=== PATIENT | female | born 1950 | race Caucasian/White ===

== ENCOUNTER 2017-01-29 11:53 | Inpatient (IN) ==
[2017-01-29] MEDS ORDERED: Aspirin 81 MG TAB.CHEW PO ONE (12:03)
--- NOTE | 2017-01-29 12:18 | Emergency Department Note ---
Disposition Clinical Impression: Unstable angina, Hypokalemia, Hypocalcemia Chest pain Qualifiers: Chest pain type: chest pain due to myocardial ischemia Ischemic chest pain type : unstable angina pectoris Qualified Code(s): I20.0 - Unstable angina Disposition: Admitted As Inpatient Condition: Serious Referrals: Louisa Joseph MD [Primary Care Provider] - Forms: ED Satisfaction Letter Time of Disposition: 14:01 Chest Pain HPI - General Chief Complaint: ED Chest Pain Stated Complaint: chest pressure// MARBELLA Time Seen by Provider: 01/29/17 12:02 Source: patient, family Limitations: no limitations - History of Present Illness Pt complaint: chest pain Onset (ago): hour(s) Time: 07:30 Duration: constant Onset: during exertion Pain Location: substernal Severity scale (1-10): 3 Quality: heaviness Pain Radiation: RUE, LUE Improves with: nothing Worsens with: nothing Associated symptoms: Reports: nausea, vomiting, diaphoresis Treatments prior to arrival chest pain: none - Related Data Home Medications Medication Instructions Recorded Confirmed Cholecalciferol (D-3) [Vitamin D] 2,000 unit PO BID #0 10/09/15 01/29/17 Fish Oil/Dha/Epa [Fish Oil 1,200 1 cap PO DAILY #0 10/09/15 01/29/17 mg Fish Oil] Magnesium 200 mg PO DAILY #0 10/09/15 01/29/17 Carvedilol [Coreg] 6.25 mg PO BID 01/29/17 01/29/17 Clopidogrel [Plavix] 75 mg PO DAILY 01/29/17 01/29/17 Levothyroxine [Synthroid] 150 mcg PO DAILY 01/29/17 01/29/17 Agj800/Iron Fumarate/FA/Dss 1 tab PO DAILY 01/29/17 01/29/17 [ 19 Tablet] Previous Rx's Medication Instructions Recorded Aspirin 81 mg PO DAILY #30 tab.chew 09/02/15 Atorvastatin [Lipitor] 80 mg PO HS #30 tablet 09/02/15 Lisinopril [Zestril] 2.5 mg PO DAILY #30 tablet 09/02/15 Nitroglycerin 0.4 mg SL Q5MIN PRN #30 tab.subl 09/02/15 Allergies Allergy/AdvReac Type Severity Reaction Status Date / Time Sulfa (Sulfonamide Allergy See Verified 01/29/17 12:00 Antibiotics) Comments All systems ED: reviewed and negative except as stated. Review of Systems: As Per HPI Constitutional: Denies: fever ENT ED: Reports: congestion. Denies: throat pain Cardiovascular: Reports: chest pain. Denies: palpitations Respiratory: Reports: dyspnea. Denies: cough, wheezes, hemoptysis Gastrointestinal: Reports: nausea, vomiting. Denies: abdominal pain, diarrhea Genitourinary: Denies: urgency, dysuria, frequency, hematuria Musculoskeletal: Denies: back pain, neck pain Integumentary: Denies: rash Neurological: Denies: headache, weakness Psychiatric: Denies: anxiety Endocrine: Reports: fatigue Chest Pain PMH - Past Medical History Medical history: Reports: arthritis, coronary artery disease, hyperlipidemia, hypertension, kidney stones, myocardial infarction, thyroid disease Surgical history: Reports: angioplasty/stent, other Psychiatric history: Reports: no psych history - Social History Smoking Status: Former smoker Alcohol use: Reports: none Drug use: Reports: none Physical Exam - General Limitations: no limitations General appearance: alert, in no apparent distress Course - Reevaluation(s) Reevaluation #1: Labs ordered, aspirin 324 and nitroglycerin sublingual ordered Time: 12:21 - Consultations Consultation #1: Discussed case with Dr. Sadi Hinojosa cardiology he states start heparin. He will see the patient when admitted to medicine Time: 13:54 Consultation #2: Dr. Tillman the hospitalist has a cut the patient for admission 1358 hrs. Time: 13:56 Vital Signs Temperature 97.5 F L 01/29/17 11:56 Pulse Rate 84 01/29/17 11:56 Respiratory Rate 20 01/29/17 11:56 Blood Pressure 143/101 01/29/17 11:56 O2 Sat by Pulse Oximetry 96 01/29/17 11:56 Temperature 97.5 F L 01/29/17 11:56 Pulse Rate 72 01/29/17 12:53 Respiratory Rate 14 01/29/17 12:53 Blood Pressure 127/86 01/29/17 12:53 O2 Sat by Pulse Oximetry 98 01/29/17 12:53 Oxygen Delivery Oxygen Delivery Room Air Chest Pain - MDM Narrative Medical decision making narrative: Patient history of HI, recent echo shows a LVEF of 30%. Patient's COPD, CHF and has one stent. Patient has had progressively worsening chest pain over the past week. Patient states episodes lasted up to 30 minutes. It was relieved by rest. Patient woke up this morning 0730 hrs. and her chest pain started after waking up but did not relieve with rest. Patient's chest pain persisted. Patient did not take any nitroglycerin as she forgot. Patient currently has chest pressure radiating to both shoulders 07/22. Current plan to be ACS workup. Patient has some bilateral lung crackles at lung bases. We will check for pneumonia. Ordered a lactic acid to check for anaerobic metabolism. Make sure patient is not septic. Patient has no markers for sepsis. Patient being admitted for unstable angina. Patient negative for UTIs well. Patient is hypokalemic and has low calcium and his been started on supplementation Patient accepts current plan for admission.. - Lab Data Lab results reviewed: Yes I reviewed the patient's lab results. Lab results narrative: Short CBC 01/29/17 Range/Units 12:28 WBC 8.4 (4.3-11.1) K/mcL Hgb 11.8 (11.5-15.4) g/dL Hct 37.9 (35.3-44.9) % Plt Count 273 (140-400) K/mcL Neutrophils # 6.5 (1.6-8.9) K/mcL BMP 01/29/17 Range/Units 12:28 Sodium 140 (136-145) mEq/L Potassium 3.3 L (3.5-4.5) mEq/L Chloride 105 (98-109) mEq/L Carbon Dioxide 25 (19-29) mEq/L BUN 16 (7-20) mg/dL Creatinine 1.05 (0.57-1.11) mg/dL Glucose 108 H (70-99) mg/dL Calcium 5.7 L* (8.6-10.8) mg/dL Cardiac Enzymes 01/29/17 Range/Units 12:28 Troponin I 0.04 H* (0-0.03) ng/mL Urine 01/29/17 Range/Units 13:10 Urine Color Yellow (Yellow) Urine Clarity Clear (Clear) Urine pH 6.5 (5.0-8.0) pH Units Ur Specific Sterling 1.011 (1.010-1.025) Urine Protein 100 H (Neg-Trace) mg/dL Urine Glucose (UA) Normal (Normal) mg/dL Result diagrams: 01/29/17 12:28 01/29/17 12:28 Lab Results 01/29/17 01/29/17 01/29/17 Range/Units 12:26 12:28 12:28 WBC 8.4 (4.3-11.1) K/mcL RBC 4.14 (3.82-4.97) M/mcL Hgb 11.8 (11.5-15.4) g/dL Hct 37.9 (35.3-44.9) % MCV 91.5 (83.0-100.0) fL MCH 28.5 (28.0-33.3) pg MCHC 31.1 L (31.6-35.5) g/dL RDW 12.1 (11.5-14.5) % Plt Count 273 (140-400) K/mcL MPV 10.5 (9.4-12.4) fL Immature Gran % 0.2 (0-4) % Seg Neutrophils % 76.7 % Lymphocytes % 14.0 % Monocytes % 6.0 % Eosinophils % 2.6 % Basophils % 0.5 % Neutrophils # 6.5 (1.6-8.9) K/mcL Lymphocytes # 1.2 (0.6-4.6) K/mcL Monocytes # 0.5 (0.0-1.3) K/mcL Eosinophils # 0.2 (0.0-0.6) K/mcL Basophils # 0.0 (0.0-0.2) K/mcL Immature Plt Fraction 3.7 (1.1-6.1) % PT 17.9 H (9.4-12.1) Seconds INR 1.6 APTT 34.9 (26.0-36.0) Seconds Sodium (136-145) mEq/L Potassium (3.5-4.5) mEq/L Chloride (98-109) mEq/L Carbon Dioxide (19-29) mEq/L BUN (7-20) mg/dL Creatinine (0.57-1.11) mg/dL Est GFR ( Amer) (> 60) Est GFR (Non-Af Amer) (> 60) BUN/Creatinine Ratio (6-26) Glucose (70-99) mg/dL Calculated Osmolality (280-300) Lactic Acid 1.2 (0.5-2.2) mmol/L Calcium (8.6-10.8) mg/dL Troponin I (0-0.03) ng/mL Urine Color (Yellow) Urine Clarity (Clear) Urine pH (5.0-8.0) pH Units Ur Specific Sterling (1.010-1.025) Urine Protein (Neg-Trace) mg/dL Urine Glucose (UA) (Normal) mg/dL Urine Ketones (Negative) mg/dL Urine Blood (Negative) Urine Nitrite (Negative) Urine Bilirubin (Negative) Urine Urobilinogen (Normal) mg/dL Ur Leukocyte Esterase (Negative) Urine Microscopic RBC (0-3) per hpf Urine Microscopic WBC (0-3) per hpf Ur Squamous Epith Cells (None-Few) per lpf Urine Bacteria (None-Few) per hpf Hyaline Casts (None-Few) per lpf Ur Culture Indicated? (NO) 01/29/17 01/29/17 01/29/17 Range/Units 12:28 12:28 13:10 WBC (4.3-11.1) K/mcL RBC (3.82-4.97) M/mcL Hgb (11.5-15.4) g/dL Hct (35.3-44.9) % MCV (83.0-100.0) fL MCH (28.0-33.3) pg MCHC (31.6-35.5) g/dL RDW (11.5-14.5) % Plt Count (140-400) K/mcL MPV (9.4-12.4) fL Immature Gran % (0-4) % Seg Neutrophils % % Lymphocytes % % Monocytes % % Eosinophils % % Basophils % % Neutrophils # (1.6-8.9) K/mcL Lymphocytes # (0.6-4.6) K/mcL Monocytes # (0.0-1.3) K/mcL Eosinophils # (0.0-0.6) K/mcL Basophils # (0.0-0.2) K/mcL Immature Plt Fraction (1.1-6.1) % PT (9.4-12.1) Seconds INR APTT (26.0-36.0) Seconds Sodium 140 (136-145) mEq/L Potassium 3.3 L (3.5-4.5) mEq/L Chloride 105 (98-109) mEq/L Carbon Dioxide 25 (19-29) mEq/L BUN 16 (7-20) mg/dL Creatinine 1.05 (0.57-1.11) mg/dL Est GFR ( Amer) > 60 (> 60) Est GFR (Non-Af Amer) 53 L (> 60) BUN/Creatinine Ratio 15 (6-26) Glucose 108 H (70-99) mg/dL Calculated Osmolality 292 (280-300) Lactic Acid (0.5-2.2) mmol/L Calcium 5.7 L* (8.6-10.8) mg/dL Troponin I 0.04 H* (0-0.03) ng/mL Urine Color Yellow (Yellow) Urine Clarity Clear (Clear) Urine pH 6.5 (5.0-8.0) pH Units Ur Specific [place] 1.011 (1.010-1.025) Urine Protein 100 H (Neg-Trace) mg/dL Urine Glucose (UA) Normal (Normal) mg/dL Urine Ketones Negative (Negative) mg/dL Urine Blood Negative (Negative) Urine Nitrite Negative (Negative) Urine Bilirubin Negative (Negative) Urine Urobilinogen Normal (Normal) mg/dL Ur Leukocyte Esterase Negative (Negative) Urine Microscopic RBC 3-5 H (0-3) per hpf Urine Microscopic WBC 0-3 (0-3) per hpf Ur Squamous Epith Cells Many H (None-Few) per lpf Urine Bacteria None Seen (None-Few) per hpf Hyaline Casts None Seen (None-Few) per lpf Ur Culture Indicated? NO (NO) - Radiology Data Radiology results reviewed: Yes I reviewed the patient's radiology results. Chest X-Ray 01/29/17 12:04 IMPRESSION: Interval increase in interstitial prominence since the previous exam which may be related to edema. No substantial change otherwise in pleural effusions. D/ / Shyann Gama MD / Shyann Gama MD Interpreting Provider: Shyann Gama MD - EKG Data EKG attestation: Yes I reviewed and interpreted this EKG. EKG results narrative: EKG taken 01/29/2017 at 1209 hrs. shows sinus rhythm with first-degree AV block but no ischemic changes. He was EKG taken at 11/06/2015 shows A. fib at a rate of 84 bpm with no acute ST elevations or depressions are. Today's EKG looks better. Heart Score - Score History: Highly Suspicious EKG: Non Specific repolarisation Disturbance Age: 45-65 Risk Factors: Equal/Greater than 3 risk factor or history of atherosclerotic disease Troponin: 1-3x normal limit HEART Score Total: 7 Attestation Statement - Attestation Attestation: Patient was seen with resident physician. I reviewed the history, physical, assessment and plan, and agree with the findings. I also personally evaluated this patient and had [id number] time with this patient. 66-year-old female the history of coronary artery disease presents to the emergency department with a one-week history of worsening chest pressure. Patient states the episodes started last week. Initially were 5-10 minutes in duration associated with exertion. Progressively the episodes of gotten longer lasting upwards of 30 minutes. Brought her in today was that she had an episode of 30 minutes it was not related to exertion. That was highly concerning to her. She also had an episode of nausea and vomiting today. She says the episode usually make her diaphoretic but not particularly short of breath. It feels similar to when she had a heart attack a little over a year ago. She denies fevers or chills. No abdominal pain. No diarrhea. Patient has nitroglycerin at home but she said she forgot to take it. She did take a baby aspirin this morning. On exam vital signs are stable. ENT is unremarkable. Heart regular rhythm and rate. Lungs clear. Abdomen soft and nontender. Extremities unremarkable. Neurologically the patient is intact. ED course initial EKG does not show acute ischemic changes. It is similar to prior EKG. We will do workup for chest pain, we will treat with nitroglycerin. We will admit to hospital for further evaluation and treatment. Agree with resident physician assessment and plan.
[2017-01-29] MEDS ORDERED: Ipratropium/Albuterol Neb 3 ML IH ONE (12:21)
[2017-01-29 12:37] LABS: Basophils % 0.5 %; Eosinophils # 0.2 K/mcL (0.0-0.6); Eosinophils % 2.6 %; Hematocrit 37.9 % (35.3-44.9); Hemoglobin 11.8 g/dL (11.5-15.4); Immature Granulocytes % 0.2 % (0-4); Immature Platelets 3.7 % (1.1-6.1); Lymphocytes # 1.2 K/mcL (0.6-4.6); Mean Corpuscular HGB Conc 31.1 g/dL (31.6-35.5); Mean Corpuscular Hemoglobin 28.5 pg (28.0-33.3); Mean Corpuscular Volume 91.5 fL (83.0-100.0); Mean Platelet Volume 10.5 fL (9.4-12.4); Monocytes # 0.5 K/mcL (0.0-1.3); Neutrophils # 6.5 K/mcL (1.6-8.9); Platelet Count 273 K/mcL (140-400); Red Blood Count 4.14 M/mcL (3.82-4.97); Red Cell Distribution Width 12.1 % (11.5-14.5); Segmented Neutrophils % 76.7 %
[2017-01-29] MEDS: Nitroglycerin 0.4 MG TAB.SUBL SL PRN ×2 (12:37→12:43)
[2017-01-29 12:43] LABS: INR 1.6; Prothrombin Time 17.9 Seconds (9.4-12.1)
[2017-01-29 12:46] LABS: Activated Partial Thrombo Time 34.9 Seconds (26.0-36.0)
[2017-01-29 12:55] LABS: BUN/Creatinine Ratio 15 (6-26); Blood Urea Nitrogen 16 mg/dL (7-20); Carbon Dioxide 25 mEq/L (19-29); Chloride 105 mEq/L (98-109); Glucose 108 mg/dL (70-99); Osmolality,Calculated 292 (280-300); Potassium 3.3 mEq/L (3.5-4.5); Sodium 140 mEq/L (136-145); eGFR For African Americans > 60 (> 60); eGFR For Non-African Americans 53 (> 60)
[2017-01-29 12:57] LABS: Calcium 5.7 mg/dL (8.6-10.8)
[2017-01-29 13:24] LABS: Bilirubin,Urine Negative (Negative); Blood,Urine Negative (Negative); Clarity,Urine Clear (Clear); Color,Urine Yellow (Yellow); Glucose,Urine (UA) Normal (Normal); Ketones,Urine Negative (Negative); Leukocyte Esterase,Urine Negative (Negative); Nitrite,Urine Negative (Negative); PH,Urine 6.5 pH Units (5.0-8.0); Protein,Urine 100 mg/dL (Neg-Trace); Specific Gravity,Urine 1.011 (1.010-1.025); Urobilinogen,Urine Normal (Normal)
[2017-01-29 13:27] LABS: Bacteria,Urine None Seen per hpf (None-Few); Hyaline Casts,Urine None Seen per lpf (None-Few); Squamous Epithelial Cell,Urine Many per lpf (None-Few); WBC,Urine 0-3 per hpf (0-3)
[2017-01-29] MEDS ORDERED: *HR* Heparin 5,000 UNIT/ML VIAL IVP ONE (13:54)
[2017-01-29] MEDS ORDERED: Calcium Gluconate 1,000 MG in D5% in Water 100 ML IVPB ONE (13:59)
[2017-01-29] MEDS: Heparin 25,000 UNIT/500 ML D5W 25,000 UNIT/500 ML MLS IVC SCH (14:53)
[2017-01-29] MEDS ORDERED: Ondansetron 4 MG/2 ML VIAL IVP PRN (15:44)
[2017-01-29] MEDS ORDERED: *HR* HYDROcodone/Acet 5/325 mg TABLET PO PRN (15:44)
[2017-01-29] MEDS ORDERED: *HR* Morphine 2 MG/ML SYRINGE IVP PRN (15:44)
[2017-01-29] MEDS ORDERED: Naloxone 0.4 MG/ML INJ IVP PRN (15:44)
[2017-01-29] MEDS ORDERED: Acetaminophen 325 MG TABLET PO PRN (15:44)
[2017-01-29] MEDS ORDERED: Pantoprazole 40 MG VIAL IVP SCH (15:45)
[2017-01-29] MEDS ORDERED: Nitroglycerin 0.4 MG TAB.SUBL SL PRN (15:52)
[2017-01-29] MEDS ORDERED: D5% in Water 1,000 ML IVC PRN (15:57)
[2017-01-29] MEDS ORDERED: *HR* Dextrose 50 % in Water (Syg) 50 ML SYRINGE IVP PRN (15:57)
[2017-01-29] MEDS ORDERED: Dextrose Gel 15 GM PO PRN ×2 (15:57)
--- NOTE | 2017-01-29 16:03 | Internal Med History&Physical ---
<aRn Dennis - Last Filed: 01/29/17 16:56> Date of Encounter: 01/29/17 Time of Encounter: 15:00 Assessment and Plan (1) Chest pain Current visit: Yes Status: Acute Patient presents with acute chest pain that she states has been occurring for the past week and has become progressively worse over the past 24 hours. Pateient describes chest pain as central pressure in her chest that radiated to her left neck and arms bilaterally. Patient states chest pain has become worse over the past week and was relieved with rest. Patient reports chest pain is similar to when she had her heart attack in August 2015. Patient had previous echocardiogram on 11/07/16 which showed LVEF of 35%. No previous stress test done. Initial troponin 0.04. Patient placed on continuous cardiac telemetry and will trend troponin x2. Cardiology consult ordered. Patient to be NPO at midnight for possible stress test based on cardiology recommendations. Nitroglycerin SL PRN. Supplemental O2 and SpO2 monitoring for SOB associated with CP. Patient placed on heparin drip. Will continue patient's aspirin therapy , Plavix, Coreg, lisinopril, Lipitor. Patient to be monitored closely. Qualifiers: Chest pain type: chest pain due to myocardial ischemia Ischemic chest pain type: unstable angina pectoris Qualified Code(s): I20.0 - Unstable angina (2) Unstable angina Current visit: Yes Status: Acute Patient presents with unstable angina today with chest pain that she describes as central pressure in her chest that radiated to her left neck and arms bilaterally. Patient states chest pain has become worse over the past week and was relieved with rest. Patient reports chest pain is similar to when she had her heart attack in August 2015. Patient had previous echocardiogram on which showed LVEF of 35%. No previous stress test done. Nitroglycerin SL PRN ordered. Continue aspirin therapy. Patient placed on heparin drip. Cardiology consult ordered. (3) Hypocalcemia Current visit: Yes Status: Acute Patient hypocalcemic on admission with calcium level of 5.7. 1,000 mg calcium gluconate IVPB administered and ED. Will monitor patient's calcium status in follow-up labs. (4) Hypokalemia Current visit: Yes Status: Acute Patient presents with acute hypokalemia with potassium level of 3.3 on admission. Patient given 40 mEq by mouth potassium in ED. 40 mEq PO potassium ordered for tomorrow if still hypokalemic. Monitor follow-up labs for potassium level. (5) Hyperglycemia Current visit: Yes Status: Acute Patient presents with acute hyperglycemia and blood glucose level of 108 on admission. Patient denies any previous diabetes mellitus. Blood glucose monitoring every 6. Will administer low-dose correction insulin sliding scale with hypoglycemic protocol if needed. A1c ordered in a.m. labs. (6) CAD (coronary artery disease) Current visit: Yes Status: Chronic Patient presents with history of chronic coronary artery disease with reported last heart attack in August 2015 which resulted in stent placement 1. Patient' s previous echo cardiogram on 11/07/16 shows LVEF of 35%. Patient's risk factors include hyperlipidemia, hypertension, former tobacco abuse, and previous UT. Initial troponin 0.04. Trend troponin 2. Patient placed on continuous cardiac telemetry. Will continue patient's aspirin therapy, Plavix, Coreg, lisinopril, and Lipitor. Cardiology consult ordered. Qualifiers: Coronary Disease-Associated Artery/Lesion type: unspecified vessel or lesion type [place] vs. transplanted heart: [place] heart Associated angina: with unstable angina Qualified Code(s): I25.110 - Atherosclerotic heart disease of [place] coronary artery with unstable angina pectoris (7) HLD (hyperlipidemia) Current visit: Yes Status: Chronic Patient presents with history of chronic hyperlipidemia. Lipid panel ordered in a.m. labs and will continue patient's Lipitor. Qualifiers: Hyperlipidemia type: pure hypercholesterolemia Qualified Code(s): E78.00 - Pure hypercholesterolemia, unspecified; E78.0 - Pure hypercholesterolemia (8) HTN (hypertension) Current visit: Yes Status: Chronic Patient presents with history of chronic hypertension. Will monitor patient and vital signs and continue patient's Coreg and lisinopril. Qualifiers: Hypertension type: essential hypertension Qualified Code(s): I10 - Essential (primary) hypertension (9) Thyroid disease Current visit: Yes Status: Chronic Patient presents with history of chronic thyroid disease. Will continue patient 's Synthroid. (10) DVT prophylaxis Current visit: Yes Status: Acute Patient to be placed on DVT prophylaxis due to her current admission protocol and current symptoms. Patient placed on heparin drip due to current unstable angina. Internal Medicine - H&P: HPI Chief complaint: Chest pain Admitted From: Emergency Dept Plans for Post Hospital Care: Home History of present illness: Ms. White is a 66 year old female with history of coronary artery disease with stent placement 1, hyperlipidemia, hypertension, previous kidney stones, UT in August 2015, and thyroid disease presents from the ED with chief complaint of chest pain that she describes as central pressure in her chest that radiated to her left neck and arms bilaterally. Patient states chest pain has become worse over the past week and was relieved with rest. Patient reports chest pain is similar to when she had her heart attack in August 2015. Patient had previous echocardiogram on 11/07/16 which showed LVEF of 35%. No previous stress test done. Patient reports some SOB and dizziness with the chest pain but denies recent illness, fever, chills, nausea, vomiting, abdominal pain, vision changes , unusual bleeding, headache, lightheadedness, pre-syncope, or syncope. 1-View CXR today shows interval increase in interstitial prominence since the previously seen which may related to edema. No substantial change otherwise and pleural effusions. On admission the ED. Patient's vital signs included temperature of 97.5F, heart rate of 72 bpm, respiratory rate of 14, BP of 127/86 , and SpO2 of 98% on RA. Initial UA not indicative for culture. Abnormal labs include PT of 7.9, potassium of 3.3, GFR of 53, calcium of 5.7, and initial troponin of 0.04. On examination, patient reports no chest pain currently and states that two nitroglycerin helped stop her chest pin. HR is RRR and lungs have mild bilateral crackles in lung bases. No pedal edema present on exam. Patient is hemodynamically stable and reports no acute distress. Information taken from patient, family, chart review, and previous medical records. Ms. White is at high risk for further cardiac event based on current symptoms, history, and risk factors and will be placed as observation status. Time spent with patient and family >40 minutes. Past Med Surg Social Fam HX - Past Medical History Source: patient, old records reviewed Medical history: arthritis, coronary artery disease, hyperlipidemia, hypertension, kidney stones, myocardial infarction, thyroid disease Psychiatric history: no psych history - Past Surgical History Surgical History: angioplasty/stent, other (Gastric bypass in 1974) - Social History Smoking Status: Former smoker Packs per day: 2 PPD - Reports quitting in 2016 following last UT Smokeless Tobacco Status: No Alcohol use: none Drug use: none Current living situation: Home, With Family Activity Level: Independent ambulation Recent Out of Country Travel Within the Last 8 Weeks: No Exposure or Possible Exposure to Illness During Travel: No - Family History Mother Race: Family Member Ethnicity: Non- Living Status: Age at : 72 Cause of : Lung cancer Hx Family Cancer: Yes (Lung) Father Race: Family Member Ethnicity: Non- Living Status: Age at : 66 Cause of : UT Hx Family Cardiac Disorders: Yes (UT, HTN) Brother Race: Family Member Ethnicity: Non- Living Status: Age at : 42 Cause of : Kidney cancer Hx Family Cancer: Yes (Kidney) Sister Race: Family Member Ethnicity: Non- Living Status: Age at : 60 Cause of : Ovarian cancer Hx Family Cancer: Yes (Ovarian) Internal Medicine - H&P: Meds Aspirin 81 mg PO DAILY #30 tab.chew 09/02/15 [Rx] Atorvastatin [Lipitor] 80 mg PO HS #30 tablet 09/02/15 [Rx] Lisinopril [Zestril] 2.5 mg PO DAILY #30 tablet 09/02/15 [Rx] Nitroglycerin 0.4 mg SL Q5MIN PRN #30 tab.subl 09/02/15 [Rx] Cholecalciferol (D-3) [Vitamin D] 2,000 unit PO BID #0 10/09/15 [History] Fish Oil/Dha/Epa [Fish Oil 1,200 mg Fish Oil] 1 cap PO DAILY #0 10/09/15 [ History] Magnesium 200 mg PO DAILY #0 10/09/15 [History] Carvedilol [Coreg] 6.25 mg PO BID 01/29/17 [History] Clopidogrel [Plavix] 75 mg PO DAILY 01/29/17 [History] Levothyroxine [Synthroid] 150 mcg PO DAILY 01/29/17 [History] Pdv392/Iron Fumarate/FA/Dss [ 19 Tablet] 1 tab PO DAILY 01/29/17 [ History] 3 Allergy/AdvReac Type Severity Reaction Status Date / Time Sulfa (Sulfonamide Allergy See Verified 01/29/17 12:00 Antibiotics) Comments All Systems PM: A 10-system review of systems was performed and is negative for pertinent findings except as documented above in the HPI. - Constitutional Constitutional: no chills, no fever(s), no night sweats - EENT Eyes: no change in vision, no discharge, no pain, no photophobia Ears: no ear discharge, no ear pain, no tinnitus Nose, mouth and throat: no dysphagia, no nasal discharge, no neck pain, no sore throat - Breasts Breasts: as per HPI - Cardiovascular Cardiovascular ROS IM: as per HPI, chest pain, dyspnea, dyspnea on exertion - Respiratory Respiratory: as per HPI, dyspnea, dyspnea on exertion - Gastrointestinal Gastrointestinal: no abdominal pain, no diarrhea, no hematemesis, no hematochezia, no melena, no nausea, no vomiting - Genitourinary Genitourinary: no change in urinary stream, no dysuria, no flank pain, no hematuria Menstruation: as per HPI - Musculoskeletal Musculoskeletal ROS IM: no numbness, no tingling - Integumentary Integumentary IM: no rash, no unusual bruising - Neurological Neurological ROS: no confusion, no convulsions, no focal weakness, no numbness, no tingling, no tremor(s) - Psychiatric Psychiatric: as per HPI - Endocrine Endocrine IM: as per HPI - Hematologic/Lymphatic Hematologic/Lymphatic: no easy bruising - Allergic/Immunologic Allergic/Immunologic: as per HPI - Constitutional Vitals: Temp Pulse Resp BP Pulse Ox 97.5 F L 67 15 138/84 96 01/29/17 11:56 01/29/17 15:11 01/29/17 15:50 01/29/17 15:50 01/29/17 15:11 General appearance: Present: cooperative, A&O X 3, pleasant, no acute distress, obese, answers questions appropriately - Head Head exam: Present: atraumatic, normocephalic - Eye Eye exam: Present: PERRL, conjuntiva pink, sclera anicteric Pupils: Present: PERRL - ENT ENT exam: Present: normal exam, normal external ear exam - Neck Neck exam general surgery: Present: normal inspection, supple, trachea midline. Absent: lymphadenopathy - Respiratory Respiratory exam: Absent: accessory muscle use, rales, rhonchi, wheezes - Cardiovascular Cardiovascular exam: Present: RRR, +S1, +S2. Absent: diastolic murmur, gallop, rubs, systolic murmur - GI/Abdominal GI/Abdominal exam: Present: normal bowel sounds, soft, no peritoneal signs. Absent: distended, tenderness - Rectal Rectal exam: Present: deferred - Additional comments: exam deferred. - Extremities Exam Extremities exam: Present: warm, radial pulses palpable and symmetrical. Absent : calf tenderness, cyanotic, pedal edema - Back Exam Back exam: Present: normal inspection - Neurological Exam Neurological exam: Present: CN II-XII intact, oriented X3, no focal deficits. Absent: pronater drift, facial droop, speech deficit - Psychiatric Psychiatric exam: Present: normal affect, normal mood - Skin Skin exam: Present: dry, intact Internal Med - H&P Results - Labs CBC & Chem 7: 01/29/17 12:28 01/29/17 12:28 - EKG Data EKG shows normal: sinus rhythm - EKG Data Prior EKG available for review: yes EKG comments: 01/29/17 16:23 EKG dated 11/06/15 shows atrial fibrillation with low QRS voltage in precordial leads, possible anterior myocardial infarction of indeterminate age. EKG dated 01/29/17 shows sinus rhythm with first-degree AV block, possible anterior myocardial infarction of indeterminate age. - Diagnostic Studies Chest x-ray Additional comments: Impressions Chest X-Ray 01/29/17 12:04 IMPRESSION: Interval increase in interstitial prominence since the previous exam which may be related to edema. No substantial change otherwise in pleural effusions. D/ / Shyann Gama MD / Shyann Gama MD Interpreting Provider: Shyann Gama MD <Mil Tillman - Last Filed: 01/29/17 18:35> Date of Encounter: 01/29/17 Internal Medicine - H&P: HPI History of present illness: Ms. White is a 66 year old female All Systems PM: A 10-system review of systems was performed and is negative for pertinent findings except as documented above in the HPI. - Constitutional Vitals: Temp Pulse Resp BP Pulse Ox 98.3 F 71 21 149/87 95 01/29/17 17:06 01/29/17 17:06 01/29/17 17:06 01/29/17 17:06 01/29/17 17:06 Internal Med - H&P Results - Labs CBC & Chem 7: 01/29/17 12:28 01/29/17 12:28 Labs: Cardiac Enzymes 01/29/17 Range/Units 17:52 Troponin I 0.03 (0-0.03) ng/mL - Attending Attestation I personally interviewed and examined this patient. I agree with the findings, assessment and plan of BELEM Dennis. Pt's presentation very concerning for unstable angina.I agree with the management as outlined including heparin drip and BB. Cardiology consult placed. Will await cardiology reccs on whether to proceed with stress test or LHC. Pt is currently pain free.
[2017-01-29] MEDS: Insulin LISPRO 300 UNITS/3 ML VIAL SQ SCH (17:36)
[2017-01-29] MEDS: Cholecalciferol (D-3) 1,000 UNIT TABLET PO SCH (20:49)
[2017-01-29] MEDS ORDERED: Insulin LISPRO 300 UNITS/3 ML VIAL SQ SCH (21:00)
[2017-01-29 21:27] LABS: Activated Partial Thrombo Time 144.5 Seconds (26.0-36.0)
[2017-01-29 21:35] LABS: Heparin anti-factor XA UFH 0.56 IU/mL (0.30-0.70)
[2017-01-30 00:47] LABS: Basophils % 0.6 %; Eosinophils # 0.2 K/mcL (0.0-0.6); Eosinophils % 3.5 %; Hematocrit 35.6 % (35.3-44.9); Immature Granulocytes % 0.2 % (0-4); Immature Platelets 3.5 % (1.1-6.1); Lymphocytes # 1.4 K/mcL (0.6-4.6); Lymphocytes % 21.6 %; Mean Corpuscular HGB Conc 30.9 g/dL (31.6-35.5); Mean Corpuscular Hemoglobin 28.5 pg (28.0-33.3); Mean Corpuscular Volume 92.2 fL (83.0-100.0); Mean Platelet Volume 10.5 fL (9.4-12.4); Monocytes # 0.4 K/mcL (0.0-1.3); Monocytes % 6.6 %; Neutrophils # 4.2 K/mcL (1.6-8.9); Platelet Count 210 K/mcL (140-400); Red Blood Count 3.86 M/mcL (3.82-4.97); Red Cell Distribution Width 12.1 % (11.5-14.5); Segmented Neutrophils % 67.5 %
[2017-01-30 00:52] LABS: INR 1.9; Prothrombin Time 20.5 Seconds (9.4-12.1)
[2017-01-30 00:55] LABS: Activated Partial Thrombo Time 63.7 Seconds (26.0-36.0)
[2017-01-30 00:58] LABS: Hemoglobin A1C 4.7 %
[2017-01-30 01:01] LABS: Alanine Aminotransferase 18 Units/L (0-55); Albumin/Globulin Ratio 0.9 (1.1-2.2); Alkaline Phosphatase 93 Units/L (38-126); Aspartate Amino Transferase 26 Units/L (5-34); BUN/Creatinine Ratio 13 (6-26); Bilirubin,Total 1.3 mg/dL (0.2-1.2); Blood Urea Nitrogen 16 mg/dL (7-20); Carbon Dioxide 21 mEq/L (19-29); Chloride 109 mEq/L (98-109); Chol/HDL Ratio 2.5 (0-4.9); Globulin 3.4 g/dL (2.4-3.5); Glucose 85 mg/dL (70-99); HDL Cholesterol 21 mg/dL (40-59); LDL Cholesterol,Calculated 20 mg/dL (0-99); Osmolality,Calculated 294 (280-300); Potassium 3.2 mEq/L (3.5-4.5); Sodium 142 mEq/L (136-145); Total Protein 6.4 g/dL (6.0-8.3); Triglycerides 58 mg/dL (< 150); eGFR For African Americans 55 (> 60); eGFR For Non-African Americans 46 (> 60)
[2017-01-30 01:02] LABS: Cholesterol 53 mg/dL (< 200); Magnesium < 0.7 mg/dL (1.6-2.6)
[2017-01-30 01:05] LABS: Calcium 5.4 mg/dL (8.6-10.8)
[2017-01-30] MEDS ORDERED: Magnesium Sulfate 2 GM in D5% in Water 100 ML IVPB ONE ×2 (01:19→16:00)
[2017-01-30] MEDS ORDERED: Calcium Gluconate 1,000 MG in D5% in Water 100 ML IVPB ONE (01:19)
[2017-01-30] MEDS ORDERED: Magnesium Sulfate 1 GM in D5% in Water 100 ML IVPB ONE (01:20)
[2017-01-30 05:08] LABS: BUN/Creatinine Ratio 15 (6-26); Blood Urea Nitrogen 16 mg/dL (7-20); Carbon Dioxide 20 mEq/L (19-29); Chloride 111 mEq/L (98-109); Glucose 104 mg/dL (70-99); Magnesium 1.2 mg/dL (1.6-2.6); Osmolality,Calculated 295 (280-300); Potassium 3.1 mEq/L (3.5-4.5); Sodium 142 mEq/L (136-145); eGFR For African Americans > 60 (> 60); eGFR For Non-African Americans 51 (> 60)
[2017-01-30 05:10] LABS: Calcium 5.7 mg/dL (8.6-10.8)
[2017-01-30] MEDS: Magnesium Sulfate 1 GM in D5% in Water 100 ML IVPB ONE ×2 (07:46→08:57)
[2017-01-30] MEDS: Insulin LISPRO 300 UNITS/3 ML VIAL SQ SCH (07:47)
[2017-01-30] MEDS ORDERED: Potassium Chloride 40 MEQ, Lidocaine 1% 2 ML in D5% in Water 500 ML IVPB ONE (08:12)
[2017-01-30] MEDS: Multivit/Ca/Min/Fe/FA 1 TAB TABLET PO SCH (08:58)
[2017-01-30] MEDS: Cholecalciferol (D-3) 1,000 UNIT TABLET PO SCH ×2 (08:58→20:47)
[2017-01-30] MEDS: Aspirin 81 MG TAB.CHEW PO SCH (08:59)
[2017-01-30] MEDS: Magnesium Oxide 400 MG TABLET PO SCH ×2 (08:59→20:47)
[2017-01-30] MEDS ORDERED: Magnesium Oxide 400 MG TABLET PO SCH (09:00)
--- NOTE | 2017-01-30 09:13 | Cardiology Consult Note ---
<Yana Munguia Concepcion - Last Filed: 01/30/17 09:43> Date of Encounter: 01/30/17 Time of Encounter: 08:40 Assessment and Plan (1) Unstable angina Current Visit: Yes Status: Acute Symptoms concerning for unstable angina. No acute ischemic ECG changes noted. Mild, adynamic troponin elevation--0.04, 0.03, 0.04. Known ischemic cardiomyopathy with LVEF 35%. [facility] Apirl 2016 s/p PCI to pLAD otherwise non-obstructive CAD. Recommend [facility] with possible PCI; alternatives, risks, and benefits discussed she is agreeable to proceed. INR 1.9 this AM, (? lab error), will recheck at 11 AM. Ideally, improve electrolyte imbalance prior to [facility] today. Continue heparin gtt, asa, statin, plavix, and betablocker. Further recommendations to follow. (2) Chronic systolic (congestive) heart failure Current Visit: Yes Status: Acute Hx of systolic CHF dating back to August 2015, LVEF 35%. Appears euvolemic upon exam. Reports NYHA class II symptoms. Has been recommended for AICD implant as outpatient; however patient is not interested in implant at this time (see outpt record). She is aware of increased risk of ventricular dysrhythmia. Most recent EF assessment October 2016, LVEF 35%. Continue asa, statin, betablocker, and ACEi. Na/fluid restriction diet, daily weights, and accurate I&Os. (3) Electrolyte abnormality Current Visit: Yes Status: Acute Severe electrolyte abnormality upon presentation, remains persistent this AM despite aggressive replacement. Mag Ox changed to 400 mg BID and will order potassium rider. Recheck labs this afternoon. Patient reports admissions in the past due to electrolyte imbalance. Patient does not take diuretics. Recommend Nephrology consult. Discussion w patient/family: The assessment and plan as outlined above was discussed with the patient and/or family members who expressed understanding and agreement. All questions were answered. Thank you for involving us in the care of your patient. Please call with any questions. The patient will be discussed and reviewed with Dr. Christensen; changes to be made accordingly. History of Present Illness Consult date: 01/30/17 Requesting physician: Mil Tillman Consult reason: Chest pain, elevated troponin Chief complaint: Chest pain History of present illness: Ms. White is a 66 year old female with PMHx significant for CAD s/p PCI (August 2015), systolic CHF, HTN, HLD, and CKD-3 who presented to the ED with symptoms concerning for unstable angina. She reports chest pain/discomfort that worsens with exertion and improves with rest over the past 1-2 weeks. Chest discomfort radiates across chest to back and down arms. Associated symptoms include nausea with vomiting. Reports symptoms are similar to previous AR. Reports symptoms worsened yesterday which prompted ED evaluation. Also presents with severe electrolyte abnormality--states this has occurred in the past. Recent CV testing: TTE 11/07/16: LVEF 35% TTE 02/01/16: LVEF 30%, global and segmental wall motion abnormality, mild LVDD, mild MR TTE 08/31/15: LVEF 30-35% LHC 08/31/15: successful PCI with PTCA/ALLEN to pLAD; otherwise mild, non- obstructive CAD. (40% 1st diagonal, 40% mLCX, 30% dLCx, and 30% pRCA. Past Med Surg Social Fam HX - Past Medical History Attestation: Yes The following information was validated with the patient. Source: patient, old records reviewed Medical history: arthritis, CHF, coronary artery disease, hyperlipidemia, hypertension, kidney stones, myocardial infarction, thyroid disease Psychiatric history: no psych history - Past Surgical History Surgical History: angioplasty/stent, other (Gastric bypass in 1974) - Social History Smoking Status: Former smoker Packs per day: 2 PPD - Reports quitting in 2016 following last AR Smokeless Tobacco Status: No Alcohol use: none Drug use: none - Family History Father Race: Family Member Ethnicity: Non- Living Status: Age at : 66 Cause of : AR Hx Family Cardiac Disorders: Yes (AR, HTN) Brother Race: Family Member Ethnicity: Non- Living Status: Age at : 42 Cause of : Kidney cancer Hx Family Cancer: Yes (Kidney) Sister Race: Family Member Ethnicity: Non- Living Status: Age at : 60 Cause of : Ovarian cancer Hx Family Cardiac Disorders: Yes Hx Family Cancer: Yes (Ovarian) Mother Race: Family Member Ethnicity: Non- Living Status: Age at : 72 Cause of : Lung cancer Hx Family Cardiac Disorders: Yes Hx Family Respiratory Disorders: Yes Hx Family Cancer: Yes (Lung) Hx Family GI Disorders: No Hx Family Endocrine Disorder: No Hx Family Neuromuscular Disorders: No Hx Family Neurologic Disorders: No Hx Family HEENT Disorders: No Hx Family Autoimmune Disorders: No Medications and Allergies Aspirin 81 mg PO DAILY #30 tab.chew 09/02/15 [Rx] Atorvastatin [Lipitor] 80 mg PO HS #30 tablet 09/02/15 [Rx] Lisinopril [Zestril] 2.5 mg PO DAILY #30 tablet 09/02/15 [Rx] Nitroglycerin 0.4 mg SL Q5MIN PRN #30 tab.subl 09/02/15 [Rx] Cholecalciferol (D-3) [Vitamin D] 2,000 unit PO BID #0 10/09/15 [History] Fish Oil/Dha/Epa [Fish Oil 1,200 mg Fish Oil] 1 cap PO DAILY #0 10/09/15 [ History] Magnesium 200 mg PO DAILY #0 10/09/15 [History] Carvedilol [Coreg] 6.25 mg PO BID 01/29/17 [History] Clopidogrel [Plavix] 75 mg PO DAILY 01/29/17 [History] Levothyroxine [Synthroid] 150 mcg PO DAILY 01/29/17 [History] Yly852/Iron Fumarate/FA/Dss [ 19 Tablet] 1 tab PO DAILY 01/29/17 [ History] 3 Allergy/AdvReac Type Severity Reaction Status Date / Time Sulfa (Sulfonamide Allergy See Verified 01/29/17 12:00 Antibiotics) Comments All Systems Review: A 10-system review of systems was performed and is negative for pertinent findings except as documented above in the HPI. - Cardiovascular Cardiovascular: as per HPI Physical Examination Vital Signs, Last 4 Hours Temp Pulse Resp BP Pulse Ox 01/30/17 07:28 97.9 F 70 18 131/79 95 General: Conversant, No Apparent Distress HEENT: Atraumatic, Normocephaly, Mucus Membranes Moist Neck: No JVD, Normal carotid pulses Cardiac: Reg Rate and Rhythm, Normal S1 and S2, No Murmur Lungs: Normal Breath Sounds, No Wheeze, Rales, Rhonchi Neuro: Alert and responsive, No focal deficits noted Abdomen: Soft, Non-Tender Skin: No rashes noted on visualized skin Musculoskeletal: No Chest Wall Tenderness Extremities: No Clubbing, No Cyanosis, No Edema, Normal Pulses Results 01/30/17 00:38 01/30/17 04:05 Lab Results 01/29/17 01/29/17 01/30/17 17:52 20:57 00:38 WBC Hgb Hct Plt Count INR APTT 144.5 H* D Sodium Potassium Chloride Carbon Dioxide BUN Creatinine Glucose Calcium Magnesium Total Bilirubin AST ALT Alkaline Phosphatase Troponin I 0.03 0.04 H* 01/30/17 01/30/17 01/30/17 00:38 00:38 00:38 WBC 6.3 Hgb 11.0 L Hct 35.6 Plt Count 210 INR 1.9 APTT 63.7 H D Sodium 142 Potassium 3.2 L Chloride 109 Carbon Dioxide 21 BUN 16 Creatinine 1.19 H Glucose 85 Calcium 5.4 L* Magnesium < 0.7 L Total Bilirubin 1.3 H AST 26 ALT 18 Alkaline Phosphatase 93 Troponin I 01/30/17 01/30/17 04:05 04:05 WBC Hgb Hct Plt Count INR APTT 63.2 H Sodium 142 Potassium 3.1 L Chloride 111 H Carbon Dioxide 20 BUN 16 Creatinine 1.08 Glucose 104 H Calcium 5.7 L* Magnesium 1.2 L Total Bilirubin AST ALT Alkaline Phosphatase Troponin I Active Medications Acetaminophen (Tylenol) 650 mg PO Q6HR PRN PRN Reason: Mild Pain (1-3) Stop: 07/31/17 15:45 Hydrocodone Bitart/Acetaminophen ([place] 5-325 Mg) 1 tab PO Q4HR PRN PRN Reason: Moderate Pain (4-6) Stop: 07/31/17 15:45 Aspirin (Aspirin) 81 mg PO DAILY [facility] Stop: 08/01/17 09:01 Last Admin: 01/30/17 08:59 Dose: 81 mg Atorvastatin Calcium (Lipitor) 80 mg PO HS [facility] Stop: 07/31/17 21:01 Last Admin: 01/29/17 20:48 Dose: 80 mg Carvedilol (Coreg) 6.25 mg PO BIDWM BRITTANY PRN Reason: Protocol Stop: 08/01/17 08:31 Last Admin: 01/30/17 09:05 Dose: 6.25 mg Clopidogrel Bisulfate (Plavix) 75 mg PO DAILY [facility] Stop: 08/01/17 09:01 Last Admin: 01/30/17 08:59 Dose: 75 mg Dextrose/Water (Dextrose 50% (Syg)) 25 ml IVP AD PRN PRN Reason: Hypoglycemia Stop: 07/31/17 15:58 Glucagon (Glucagen) 1 mg IM ONCE PRN PRN Reason: Hypoglycemia Stop: 07/31/17 15:58 Glucose (Gluctose) 15 gm PO ONCE PRN PRN Reason: Hypoglycemia Stop: 07/31/17 15:58 Glucose (Gluctose) 30 gm PO ONCE PRN PRN Reason: Hypoglycemia Stop: 07/31/17 15:58 Heparin Sodium/Dextrose (Heparin 25,000 Unit/500 Ml D5w) 25,000 unit in 500 mls @ 19.864 mls/hr IVC .Q24H BRITTANY; 14 UNIT/KG/HR PRN Reason: Protocol Stop: 07/31/17 14:01 Last Titration: 01/30/17 05:42 Dose: 9.86 unit/kg/hr, 14 mls/hr Dextrose (Dextrose 5%) 1,000 mls @ 100 mls/hr IVC .Q10H PRN PRN Reason: HYPOGLYCEMIA Stop: 07/31/17 15:58 Potassium Chloride 40 meq/ (Lidocaine 2 ml/ Dextrose) 522 mls @ 130.5 mls/hr IVPB ONCE ONE Stop: 01/30/17 12:11 Insulin Human Lispro (Humalog) 0 units SQ TIDAC BRITTANY PRN Reason: Protocol Stop: 07/31/17 16:31 Last Admin: 01/30/17 07:47 Dose: Not Given Insulin Human Lispro (Humalog) 0 units SQ HS BRITTANY PRN Reason: Protocol Stop: 07/31/17 21:01 Last Admin: 01/29/17 20:49 Dose: Not Given Lansoprazole (Prevacid) 15 mg PO DAILY@0730 BRITTANY PRN Reason: Protocol Stop: 08/01/17 08:32 Last Admin: 01/30/17 09:05 Dose: 15 mg Levothyroxine Sodium (Synthroid) 150 mcg PO 0630 BRITTANY Stop: 08/01/17 06:31 Last Admin: 01/30/17 06:59 Dose: 150 mcg Lisinopril (Zestril) 2.5 mg PO DAILY BRITTANY PRN Reason: Protocol Stop: 08/01/17 09:01 Last Admin: 01/30/17 08:58 Dose: 2.5 mg Magnesium Oxide (Mag-Ox) 400 mg PO BID BRITTANY Stop: 08/01/17 09:01 Last Admin: 01/30/17 08:59 Dose: 400 mg Morphine Sulfate (Morphine Sulfate) 2 mg IVP Q4HR PRN PRN Reason: Severe Pain (7-10) Stop: 07/31/17 15:45 Multivitamins/Calcium (Thera M Plus) 1 tab PO DAILY BRITTANY Stop: 08/01/17 09:01 Last Admin: 01/30/17 08:58 Dose: 1 tab Naloxone HCl (Narcan) 0.4 mg IVP Q2MIN PRN PRN Reason: Opioid Reversal Stop: 07/31/17 15:45 Nitroglycerin (Nitroglycerin) 0.4 mg SL Q5MIN PRN PRN Reason: Chest Pain Stop: 07/31/17 15:53 Ondansetron HCl (Zofran) 4 mg IVP Q8HR PRN PRN Reason: Nausea And Vomiting Stop: 07/31/17 15:45 Potassium Chloride (Potassium Chloride) 40 meq PO ONCE ONE Stop: 01/30/17 16:00 Vitamin D (Vitamin D) 2,000 unit PO BID BRITTANY Stop: 07/31/17 21:01 Last Admin: 01/30/17 08:58 Dose: 2,000 unit - Imaging and Cardiology Echo: report reviewed Cardiac cath: report reviewed Other Results: 12 hour tele: avg HR=69 SR. No significant event noted. - EKG Interpretation EKG results cardiology: personally reviewed Consult Discharge Plan - Plan Referrals: Louisa Joseph MD [Primary Care Provider] - 02/06/17 1:00 pm (please follow up as schedule...) <Nurys Christensen - Last Filed: 01/30/17 13:07> Date of Encounter: 01/30/17 Assessment and Plan Discussion w patient/family: The assessment and plan as outlined above was discussed with the patient and/or family members who expressed understanding and agreement. All questions were answered. Thank you for involving us in the care of your patient. Please call with any questions. History of Present Illness History of present illness: Ms. White is a 66 year old female All Systems Review: A 10-system review of systems was performed and is negative for pertinent findings except as documented above in the HPI. Physical Examination Vital Signs, Last 4 Hours Temp Pulse Resp BP Pulse Ox 01/30/17 11:20 97.7 F 66 17 123/67 94 01/30/17 09:15 95 Results 01/30/17 00:38 01/30/17 04:05 Lab Results 01/29/17 01/29/17 01/30/17 17:52 20:57 00:38 WBC Hgb Hct Plt Count INR APTT 144.5 H* D Sodium Potassium Chloride Carbon Dioxide BUN Creatinine Glucose Calcium Magnesium Total Bilirubin AST ALT Alkaline Phosphatase Troponin I 0.03 0.04 H* 01/30/17 01/30/17 01/30/17 00:38 00:38 00:38 WBC 6.3 Hgb 11.0 L Hct 35.6 Plt Count 210 INR 1.9 APTT 63.7 H D Sodium 142 Potassium 3.2 L Chloride 109 Carbon Dioxide 21 BUN 16 Creatinine 1.19 H Glucose 85 Calcium 5.4 L* Magnesium < 0.7 L Total Bilirubin 1.3 H AST 26 ALT 18 Alkaline Phosphatase 93 Troponin I 01/30/17 01/30/17 01/30/17 04:05 04:05 11:03 WBC Hgb Hct Plt Count INR APTT 63.2 H 57.1 H Sodium 142 Potassium 3.1 L Chloride 111 H Carbon Dioxide 20 BUN 16 Creatinine 1.08 Glucose 104 H Calcium 5.7 L* Magnesium 1.2 L Total Bilirubin AST ALT Alkaline Phosphatase Troponin I 01/30/17 01/30/17 11:03 11:03 WBC Hgb Hct Plt Count INR 1.6 APTT Sodium Potassium Chloride Carbon Dioxide BUN Creatinine Glucose Calcium Magnesium 1.3 L Total Bilirubin AST ALT Alkaline Phosphatase Troponin I - Attending Attestation I examined this patient and my medical decision-making was reviewed with the Resident Physician. I agree with the documented findings, disposition and treatment plan. Ms. White presents with both typical and atypical features to her chest discomfort in setting of mildly elevated, flat troponin which may be consistent with unstable angina. She has known CAD having undergone PCI to proximal LAD in 2016 with otherwise moderate CAD. Given features of her chest discomfort that appear somewhat similar to the symptoms she had in 2016 along with troponin elevation, we have recommended proceeding with [facility]. The R/B/A of the procedure were discussed with the patient. She expressed understanding and agreement to proceed. Otherwise, she may benefit from Nephrology evaluation given electrolyte disturbances.
--- NOTE | 2017-01-30 09:42 | Internal Med Progress Note ---
<DariaAdy gee - Last Filed: 01/30/17 13:26> Date of Encounter: 01/30/17 Time of Encounter: 09:15 - Assessment and plan (1) Chest pain Current Visit: Yes Status: Acute Assessment and plan: - Typical chest pain concerning for ischemic disease - Cardiology has been consulted. - History of ischemic cardiomyopathy with most recent and echocardiogram showing ejection fraction of 35% - Status post PCI with 1 stent placement in LAD per patient - Cardiology will plan on left heart catheter this afternoon with possible PCI - Continue beta mitch, aspirin, Plavix, TARIQ inhibitor, statin, heparin drip Qualifiers: Chest pain type: chest pain due to myocardial ischemia Ischemic chest pain type: unstable angina pectoris Qualified Code(s): I20.0 - Unstable angina (2) Hypokalemia Current Visit: Yes Status: Acute Assessment and plan: - Most recent potassium of 3.1 - Magnesium of 1.2 - Replenishing as necessary with oral supplementation (3) Hypocalcemia Current Visit: Yes Status: Acute Assessment and plan: - Calcium of 5.7 most recently - Oral supplementation (4) Hypomagnesemia Current Visit: Yes Status: Acute Assessment and plan: - Magnesium of 1.2 months recently, will replenish (5) CAD (coronary artery disease) Current Visit: Yes Status: Chronic Assessment and plan: - Concern for unstable angina even typical chest pain and history of ischemic cardio myopathy - Continue treatment as above - Left heart catheterization this afternoon per cardiology Qualifiers: Coronary Disease-Associated Artery/Lesion type: [place] artery [place] vs. transplanted heart: [place] heart Associated angina: with unstable angina Qualified Code(s): I25.110 - Atherosclerotic heart disease of [place] coronary artery with unstable angina pectoris (6) HLD (hyperlipidemia) Current Visit: Yes Status: Chronic Assessment and plan: - Continue statin Qualifiers: Hyperlipidemia type: pure hypercholesterolemia Qualified Code(s): E78.00 - Pure hypercholesterolemia, unspecified; E78.0 - Pure hypercholesterolemia (7) HTN (hypertension) Current Visit: Yes Status: Chronic Assessment and plan: - 131/77, well controlled - Continue medications Qualifiers: Hypertension type: essential hypertension Qualified Code(s): I10 - Essential (primary) hypertension (8) DVT prophylaxis Current Visit: Yes Status: Acute Assessment and plan: - Receiving therapeutic heparin for unstable angina - Time Spent With Patient 25 - 35 minutes - Subjective Interval history: Mrs. White was seen and examined at bedside this morning. She states she is no longer feeling any symptoms of chest pain. She described the pain yesterday as pressure in the center of her chest worsened with exertion and relieved with nitroglycerin in the emergency department. Reports the pain lasting for 1-2 weeks. Patient is currently asymptomatic denying any symptoms of chest pain, pressure, shortness of breath, fevers, chills, nausea, vomiting. - Constitutional Vitals: Temp Pulse Resp BP Pulse Ox 97.9 F 70 18 131/79 95 01/30/17 07:28 01/30/17 07:28 01/30/17 07:28 01/30/17 07:28 01/30/17 09:15 General appearance: Present: cooperative, A&O X 3, pleasant, no acute distress, obese, answers questions appropriately Exam: Gen.: Vitals noted. No acute distress. AAOx3 HEENT: PERRL/EOMI, oropharynx clear, Normocephalic, atraumatic Neck: Supple. No adenopathy. Cardiac: RRR, no murmur, +S1/S2 Pulmonary: CTA bilaterally, no wheezes, rales or rhonchi, equal chest expansion Abdomen: soft, nontender, BS noted, no guarding Back: Nontender throughout. MSK: ROM intact, no joint swelling noted Extremities: no BLE edema, nontender calf, no cyanosis or clubbing Neuro: A&Ox3, moves all extremities, no focal deficits Psych: Appropriate mood and behavior Internal Medicine: Result - Labs CBC & Chem 7: 01/30/17 00:38 01/30/17 04:05 Labs: Short CBC 01/30/17 Range/Units 00:38 WBC 6.3 (4.3-11.1) K/mcL Hgb 11.0 L (11.5-15.4) g/dL Hct 35.6 (35.3-44.9) % Plt Count 210 (140-400) K/mcL Neutrophils # 4.2 (1.6-8.9) K/mcL BMP 01/30/17 01/30/17 00:38 04:05 Sodium 142 142 Potassium 3.2 L 3.1 L Chloride 109 111 H Carbon Dioxide 21 20 BUN 16 16 Creatinine 1.19 H 1.08 Glucose 85 104 H Calcium 5.4 L* 5.7 L* Cardiac Enzymes 01/29/17 01/30/17 Range/Units 17:52 00:38 Troponin I 0.03 0.04 H* (0-0.03) ng/mL Liver Function 01/30/17 Range/Units 00:38 Total Bilirubin 1.3 H (0.2-1.2) mg/dL AST 26 (5-34) Units/L ALT 18 (0-55) Units/L Alkaline Phosphatase 93 (38-126) Units/L Albumin 3.0 L (3.5-5.0) g/dL - ABG Interpretation ABG results: PT/INR, D-dimer PT 20.5 Seconds (9.4-12.1) H 01/30/17 00:38 Consult Discharge Plan - Plan Referrals: Louisa Joseph MD [Primary Care Provider] - 02/06/17 1:00 pm (please follow up as schedule...) <Colby Day P - Last Filed: 01/30/17 18:28> Date of Encounter: 01/30/17 - Constitutional Vitals: Temp Pulse Resp BP Pulse Ox 97.6 F 73 16 107/66 95 01/30/17 15:22 01/30/17 17:30 01/30/17 17:30 01/30/17 17:30 01/30/17 17:30 Internal Medicine: Result - Labs CBC & Chem 7: 01/30/17 00:38 01/30/17 04:05 Labs: Short CBC 01/30/17 Range/Units 00:38 WBC 6.3 (4.3-11.1) K/mcL Hgb 11.0 L (11.5-15.4) g/dL Hct 35.6 (35.3-44.9) % Plt Count 210 (140-400) K/mcL Neutrophils # 4.2 (1.6-8.9) K/mcL BMP 01/30/17 01/30/17 00:38 04:05 Sodium 142 142 Potassium 3.2 L 3.1 L Chloride 109 111 H Carbon Dioxide 21 20 BUN 16 16 Creatinine 1.19 H 1.08 Glucose 85 104 H Calcium 5.4 L* 5.7 L* Cardiac Enzymes 01/30/17 Range/Units 00:38 Troponin I 0.04 H* (0-0.03) ng/mL Liver Function 01/30/17 Range/Units 00:38 Total Bilirubin 1.3 H (0.2-1.2) mg/dL AST 26 (5-34) Units/L ALT 18 (0-55) Units/L Alkaline Phosphatase 93 (38-126) Units/L Albumin 3.0 L (3.5-5.0) g/dL - ABG Interpretation ABG results: PT/INR, D-dimer PT 17.7 Seconds (9.4-12.1) H 01/30/17 11:03 - Attending Attestation I examined this patient and my medical decision-making was reviewed with the Resident Physician. I agree with the documented findings, disposition and treatment plan as described except to the extent set forth below. Cardiology recommendation appreciated.
[2017-01-30 11:24] LABS: INR 1.6; Prothrombin Time 17.7 Seconds (9.4-12.1)
[2017-01-30] MEDS ORDERED: *HR* Heparin 5,000 UNIT/ML VIAL IVP PRN ×2 (12:38)
[2017-01-30] MEDS ORDERED: Verapamil 5 MG/2 ML VIAL ONE (13:35)
[2017-01-30] MEDS ORDERED: Heparin 1,000 UNITS/500 mL NS 500 ML ONE (13:35)
[2017-01-30] MEDS ORDERED: *HR* Heparin 10,000 UNIT/10 ML VIAL ONE (13:35)
[2017-01-30] MEDS ORDERED: 0.9 % Sodium Chloride 1,000 ML ONE ×2 (13:35→14:10)
[2017-01-30] MEDS ORDERED: Nitroglycerin 1,000 MCG/10 ML VIAL IV ONE (13:36)
[2017-01-30] MEDS ORDERED: *HR* Midazolam HCl 2 MG/2 ML VIAL ONE (14:10)
[2017-01-30] MEDS ORDERED: *HR* FentaNYL (PF) 100 MCG/2 ML VIAL ONE (14:10)
--- NOTE | 2017-01-30 14:47 | Pre-Sedation Evaluation ---
Pre-sedation evaluation - Pre-sedation checklist Date of procedure: 01/30/17 Procedure: [facility] Recent Vitals: Last Vital Signs Temp 97.7 F 01/30/17 11:20 Pulse 66 01/30/17 11:20 Resp 17 01/30/17 11:20 BP 123/67 01/30/17 11:20 Pulse Ox 94 01/30/17 11:20 H&P (including ROS) documented in medical record: Yes Previous reaction to sedatives/anesthetics: No Dietary Status: NPO after Midnight Airway Assessment: Patient can open mouth completely, TMJ function normal Dentition: No loose teeth or bridges ASA Classification *see protocol: CLASS II-Mild systemic disease Plan of Care: Pt appropriate candidate for procedure/moderate/conscious sedation , Risks/benefits of procedure/sedation discussed w/ patient/family
--- NOTE | 2017-01-30 15:11 | Invasive Diagnostic Lab Proc ---
Name: Zonia White Date of Study: 01/30/2017 Date: 1950 Ht: 66.1in Medical Record#: [id number] Age: 66 Wt: 158.95lb Gender: Female BSA: 1.82 Order #: [id number] BMI: 25.55 Physicians Procedure Physician: Gian Scherer MD, [facility] Referring MD: Referring MD: Staff Name Position Time In Sites, [facility] RT (R) Scrub 02:18 PM SalomeNoemí RT (R) Monitor 02:18 PM Annika Lewis RN Full Charge Bookkeeper 02:18 PM Shauna Amaya RN Full Charge Bookkeeper 02:18 PM Indications Indication Non-Stemi Unstable Angina Procedures Performed Procedure L HRT ARTERY/VENTRICLE ANGIO Pre-Procedure Checklist Informed consent is complete signed and on chart. H&P is on chart. ID band is on and ID verified with patient. Patient NPO for procedure The procedure was described for the patient and questions were answered. Blood Pressure: 137/81 ECG is on chart. Rhythm: NSR Plan of Care Patient will tolerate the procedure without complications. Adequate level of comfort will be maintained. Hemodynamics will remain stable Patient will recover from procedure without complications. Respiratory function will be maintained. Cardiac rhythm will remain stable. Patient temperature will be maintained. Patient and/or family have verbalized understanding of the procedure. Patient Education Chief Complaint/Reason for Test: Cardiac Cath Developmental Category: Adult (18-64 years) Developmentally Appropriate for Age: Yes Learning Barriers: None Education Needs: Procedure Education Method: Verbal Information Taught: Cardiac Cath Educational Evaluation: Able to repeat information Intravenous Access Time IV Size Location DC'd Fluid/Drip Rate Units RN 20g 1 1/4" Patent On Arrival Rt Wrist 0.9NaCl 20g 1 1/4" Patent On Arrival Lt Arm Allergies SULFA (sulfonamide) Vital Signs Time BP (mmHg) HR (bpm) O2 Sat. RR (bpm) LOC 137 / 81 66 94 % 17 02:17 PM / % 4 = Oriented but drowsy 02:17 PM / % 4 = Oriented but drowsy 02:32 PM / % 4 = Oriented but drowsy 02:15 PM 137 / 81 68 98 % 20 02:20 PM 140 / 86 71 98 % 22 02:25 PM 124 / 75 64 94 % 22 02:30 PM 127 / 78 68 92 % 21 02:35 PM 123 / 72 66 92 % 17 02:40 PM 127 / 76 71 94 % 17 02:45 PM 130 / 69 66 95 % 18 02:50 PM 123 / 68 65 94 % 17 02:55 PM 120 / 75 65 94 % 16 02:48 PM / % 4 = Oriented but drowsy Procedural Medications Time Medication Dose Units Method Given By 02:17 PM Oxygen 2 L/min nasal cannula Shauna Amaya RN 02:17 PM Versed 2 mg Intravenous Shauna Amaya RN 02:17 PM Fentanyl 50 mcg Intravenous Shauna Amaya RN 02:29 PM Lidocaine 2% 19 ml Subcutaneous Gian Scherer MD, [facility] Smita Score Preprocedure Postprocedure Activity 2- Moves 4 extremities sustained head lift Activity 2- Moves 4 extremities sustained head lift Circulation 2- SBP +/= 20 points of pre-anesthetic level Circulation 2- SBP +/= 20 points of pre-anesthetic level Consciousness 2- Awake and alert oriented x 3 Consciousness 2- Awake and alert oriented x 3 O2 Saturation 2- Able to maintain O2 satruation of 92% on room air O2 Saturation 2- Able to maintain O2 satruation of 92% on room air Respiratory 2- Able to deep breathe and cough well Respiratory 2- Able to deep breathe and cough well Total Score 10 Total Score 10 Contrast Agent: Isovue Diagnostic Contrast: 49 ml Total Contrast: 49 ml Fluoro Dose: 93 mGy Procedure Log Time Note Enter By 02:13 PM Vitals capture started with the following parameters, Patient=Adult, Interval=5 min, Initial Tlienzbo=765 mmHg, Deflation Rate=5 mmHg, Cuff placed on Left Arm 02:13 PM CathStat 02:13 PM Case Start 02:13 PM Vitals capture stopped. 02:15 PM Vitals capture started with the following parameters, Patient=Adult, Interval=5 min, Initial Bwdedtcy=421 mmHg, Deflation Rate=5 mmHg, Cuff placed on Left Arm 02:15 PM HR=68 bpm, MBRM=924/81 mmhg, SpO2=98.0 %, Resp=20 B/min, Comment=NSR 02:16 PM Pt arrived to laundry laborer 2 at 14:16 [email or web address] 02:17 PM Pt arrived to laundry laborer 2 at 14:17 [email or web address] 02:17 PM Patient charges- Angio tray pack, Navilyst 3mm J, Pulse Oximetry and ACIST tubing and transducer [email or web address] 02:17 PM Case Delayed No [email or web address] 02:17 PM Hair removed from procedure site in holding area using clippers. Bilateral groin prepped with Chloraprep by Noemí Mcmahon RT (R), safety strap applied then patient was draped. Skin intact. [email or web address] 02:17 PM Physician arrived 14:17 [email or web address] 02:17 PM Meet and greet completed [email or web address] 02:17 PM Sign in performed according to hospital policy. [email or web address] 02:17 PM Procedure start 14:17 [email or web address] 02:17 PM Time: 14:17 Oxygen on at 2 L/min per nasal cannula by Shauna Amaya RN [email or web address] 02:17 PM Time: 14:17 Versed 2 mg Intravenous Given by Shauna Amaya RN [email or web address] 02:17 PM Time: 14:17 Fentanyl 50 mcg Intravenous Given by Shauna Amaya RN [email or web address] 02:17 PM Time: 14:17 Patient comfortable and pain free: Yes [email or web address] 02:17 PM Time: 14:17LOC: 4 = Oriented but drowsy [email or web address] 02:18 PM Irma Gayle RT (R) Position: Scrub Time in: 14:18 [email or web address] 02:18 PM Noemí Mcmahon RT (R) Position: Monitor Time in: 14:18 [email or web address] 02:18 PM Annika Lewis RN Position: Full Charge Bookkeeper Time in: 14:18 [email or web address] 02:18 PM Shauna Amaya RN Position: Full Charge Bookkeeper Time in: 14:18 [email or web address] 02:20 PM HR=71 bpm, QRVM=328/86 mmhg, SpO2=98.0 %, Resp=22 B/min, Comment=NSR 02:21 PM Pressure channel 3 zeroed. 02:21 PM Recorded ECG: HR=66 Condition=Condition 1 02:25 PM HR=64 bpm, ZYRD=397/75 mmhg, SpO2=94.0 %, Resp=22 B/min, Comment=NSR 02:28 PM Time out performed according to hospital policy [email or web address] 02:29 PM Time: 14:29 19 ml Lidocaine 2% to right groin Subcutaneous Given by Gian Scherer MD, FACC [email or web address] 02:30 PM HR=68 bpm, KYSF=494/78 mmhg, SpO2=92.0 %, Resp=21 B/min, Comment=NSR 02:31 PM Access obtained by percutaneous puncture. 5Fr 10cm Terumo [place] sheath placed in right Femoral artery. [id number] [email or web address] 02:31 PM 0.035 145cm Navilyst 3mmJ wire [id number] [email or web address] 02:31 PM 5Fr FL 4 catheter inserted over the wire DNC [email or web address] 02:32 PM LCA angiography performed in multiple views. [email or web address] 02:32 PM Recorded Pressure: Ao, HR=67, Condition=Condition 1 (Aorta) Ao 123/78/98 02:32 PM Time: 14:17 Patient comfortable and pain free: Yes [email or web address] 02:32 PM Time: 14:17LOC: 4 = Oriented but drowsy [email or web address] 02:33 PM Catheter removed [email or web address] 02:34 PM 5Fr FR 4 catheter inserted over the wire DNC [email or web address] 02:34 PM Lesion found in Mid LAD. Pre Stenosis: 50 Pre EDER Flow: [email or web address] 02:35 PM Lesion found in Mid Circumflex. Pre Stenosis: 50 Pre EDER Flow: [email or web address] 02:35 PM Recorded Pressure: Ao, HR=66, Condition=Condition 1 (Aorta) Ao 118/84/100 02:35 PM RCA angiography performed in multiple views. [email or web address] 02:35 PM Coronary Dominance: Co-dominant [email or web address] 02:35 PM HR=66 bpm, RQLW=155/72 mmhg, SpO2=92.0 %, Resp=17 B/min, Comment=NSR 02:35 PM Catheter removed [email or web address] 02:35 PM Lesion found in Mid RCA. Pre Stenosis: 15 Pre EDER Flow: [email or web address] 02:36 PM 5Fr Pigtail catheter inserted over the wire DNC [email or web address] 02:36 PM Pressure channel 3 zero failed. 02:37 PM Recorded Pressure: LV, HR=68, Condition=Condition 1 (Left Ventricle) LV 99/11/15 02:37 PM Catheter selectively placed in left ventricle [email or web address] 02:37 PM Bolus angiogram of left Ventricle complete: 10 ml/sec for a total of 30 mls [email or web address] 02:37 PM Recorded Pressure: LV, Ao, HR=70, Condition=Condition 1 (Left Ventricle) LV 131/16/21, (Aorta) Ao 134/31/78 02:38 PM Catheter removed [email or web address] 02:40 PM Bolus angiogram of right Femoral complete: 4 ml/sec for a total of 7 mls [email or web address] 02:40 PM Procedure completed at 14:40 [email or web address] 02:40 PM HR=71 bpm, GTVP=647/76 mmhg, SpO2=94.0 %, Resp=17 B/min, Comment=NSR 02:40 PM Sign out completed: Radiation Dose 93.08 mGy Fluoro Time: 0.8 Isovue 370 - 200ml contrast 49 ml given by Gina Scherer MD, FACC. Complications: NoneCardiac Rehab Consult needed: NoConfirmed administered medications: Yes [email or web address] 02:40 PM Isovue 370 - 200ml,1 Bottle(s) used. [email or web address] 02:41 PM Arterial sheath pulled using manual compression and V+ Pad for 15 minutes by Irma Gayle RT (R) [email or web address] 02:41 PM Post ECG NSR [email or web address] 02:41 PM Post Blood Pressure 127/76 [email or web address] 02:41 PM Information taught Cardiac Cath [email or web address] 02:41 PM Learning barriers :None [email or web address] 02:41 PM Education Methods Verbal [email or web address] 02:42 PM Education evaluation Able to repeat information [email or web address] 02:42 PM Delay to floor No [email or web address] 02:42 PM Complications: None [email or web address] 02:42 PM Isovue 370 - 200ml contrast 49 ml given by Gian Scherer MD, FACC. [email or web address] 02:42 PM Radiation Dose 93.08 mGy [email or web address] 02:44 PM Family placed in consult room. [email or web address] 02:45 PM HR=66 bpm, JWYF=042/69 mmhg, SpO2=95.0 %, Resp=18 B/min, Comment=NSR 02:46 PM Report given to Sara PLEITEZ Pt taken to 2A Room #23. 14:46 [email or web address] 02:47 PM Time: 14:32 Patient comfortable and pain free: Yes [email or web address] 02:48 PM Time: 14:32LOC: 4 = Oriented but drowsy [email or web address] 02:50 PM HR=65 bpm, WVXY=647/68 mmhg, SpO2=94.0 %, Resp=17 B/min, Comment=NSR 02:55 PM HR=65 bpm, ZOVU=782/75 mmhg, SpO2=94.0 %, Resp=16 B/min, Comment=NSR 03:05 PM Time: 14:48LOC: 4 = Oriented but drowsy [email or web address] 03:05 PM Time: 14:47 Patient comfortable and pain free: Yes [email or web address] 03:05 PM Site status No bleeding/hematoma - Rt Groin as reported by Shauna Amaya RN at 15:05 [email or web address] 03:05 PM Opsite applied [email or web address] 03:05 PM Patient out of room: 15:05 [email or web address] Complications Complication None None Hemodynamics Pressures Site Systolic/A Wave Diastolic/V Wave Mean AO 123 78 98 AO 118 84 100 LV 99 11 15 LV 131 16 21 AO 134 31 78 Post Procedure Information Blood Pressure: 127/76 mmHg Rhythm: NSR Post procedural instructions were given Site Checks Time Location Status Staff Sheath In? Note 03:05 PM Rt Groin No bleeding/hematoma Shauna Amaya RN Pulses Time Site Pre-Procedure Post-Procedure Note 01/30/2017 2:00:00 PM Bilateral DP & PT 1+ 1+ 01/30/2017 2:00:00 PM Bilateral radial 2+ 2+ Updated by Noemí Mcmahon, RT(R) on 01/30/2017 3:06:02 PM electronically signed on 01/30/2017 3:06:30 PM with status of Final
--- NOTE | 2017-01-30 16:06 | Invasive Diagnostic Lab Proc ---
Name: Zonia White Date of Study: 01/30/2017 Date: 1950 Ht: 66.1in Medical Record#: [id number] Age: 66 Wt: 158.95lb Gender: Female BSA: 1.82 Order #: [id number] BMI: 25.55 Physicians Procedure Physician: Gian Scherer MD, [facility] Referring MD: Referring MD: Staff Name Position Time In Sites, [facility] RT (R) Scrub 02:18 PM SalomeNoemí RT (R) Monitor 02:18 PM Annika Lewis RN Biodiesel Division Manager 02:18 PM Shauna Amaya RN Biodiesel Division Manager 02:18 PM Indications Indication Non-Stemi Unstable Angina Procedures Performed Procedure L HRT ARTERY/VENTRICLE ANGIO Pre-Procedure Checklist Informed consent is complete signed and on chart. H&P is on chart. ID band is on and ID verified with patient. Patient NPO for procedure The procedure was described for the patient and questions were answered. Blood Pressure: 137/81 ECG is on chart. Rhythm: NSR Plan of Care Patient will tolerate the procedure without complications. Adequate level of comfort will be maintained. Hemodynamics will remain stable Patient will recover from procedure without complications. Respiratory function will be maintained. Cardiac rhythm will remain stable. Patient temperature will be maintained. Patient and/or family have verbalized understanding of the procedure. Patient Education Chief Complaint/Reason for Test: Cardiac Cath Developmental Category: Adult (18-64 years) Developmentally Appropriate for Age: Yes Learning Barriers: None Education Needs: Procedure Education Method: Verbal Information Taught: Cardiac Cath Educational Evaluation: Able to repeat information Intravenous Access Time IV Size Location DC'd Fluid/Drip Rate Units RN 20g 1 1/4" Patent On Arrival Rt Wrist 0.9NaCl 20g 1 1/4" Patent On Arrival Lt Arm Allergies SULFA (sulfonamide) Vital Signs Time BP (mmHg) HR (bpm) O2 Sat. RR (bpm) LOC 137 / 81 66 94 % 17 02:17 PM / % 4 = Oriented but drowsy 02:17 PM / % 4 = Oriented but drowsy 02:32 PM / % 4 = Oriented but drowsy 02:48 PM / % 4 = Oriented but drowsy 02:15 PM 137 / 81 68 98 % 20 02:20 PM 140 / 86 71 98 % 22 02:25 PM 124 / 75 64 94 % 22 02:30 PM 127 / 78 68 92 % 21 02:35 PM 123 / 72 66 92 % 17 02:40 PM 127 / 76 71 94 % 17 02:45 PM 130 / 69 66 95 % 18 02:50 PM 123 / 68 65 94 % 17 02:55 PM 120 / 75 65 94 % 16 Procedural Medications Time Medication Dose Units Method Given By 02:17 PM Oxygen 2 L/min nasal cannula Shauna Amaya RN 02:17 PM Versed 2 mg Intravenous Shauna Amaya RN 02:17 PM Fentanyl 50 mcg Intravenous Shauna Amaya RN 02:29 PM Lidocaine 2% 19 ml Subcutaneous Gian Scherer MD, [facility] Smita Score Preprocedure Postprocedure Activity 2- Moves 4 extremities sustained head lift Activity 2- Moves 4 extremities sustained head lift Circulation 2- SBP +/= 20 points of pre-anesthetic level Circulation 2- SBP +/= 20 points of pre-anesthetic level Consciousness 2- Awake and alert oriented x 3 Consciousness 2- Awake and alert oriented x 3 O2 Saturation 2- Able to maintain O2 satruation of 92% on room air O2 Saturation 2- Able to maintain O2 satruation of 92% on room air Respiratory 2- Able to deep breathe and cough well Respiratory 2- Able to deep breathe and cough well Total Score 10 Total Score 10 Contrast Agent: Isovue Diagnostic Contrast: 49 ml Total Contrast: 49 ml Fluoro Dose: 93 mGy Procedure Log Time Note Enter By 02:13 PM Vitals capture started with the following parameters, Patient=Adult, Interval=5 min, Initial Kxcrqnzx=014 mmHg, Deflation Rate=5 mmHg, Cuff placed on Left Arm 02:13 PM CathStat 02:13 PM Case Start 02:13 PM Vitals capture stopped. 02:15 PM Vitals capture started with the following parameters, Patient=Adult, Interval=5 min, Initial Apmwplho=809 mmHg, Deflation Rate=5 mmHg, Cuff placed on Left Arm 02:15 PM HR=68 bpm, ZWCG=693/81 mmhg, SpO2=98.0 %, Resp=20 B/min, Comment=NSR 02:16 PM Pt arrived to laborer pullet farm 2 at 14:16 [email or web address] 02:17 PM Pt arrived to laborer pullet farm 2 at 14:17 [email or web address] 02:17 PM Patient charges- Angio tray pack, Navilyst 3mm J, Pulse Oximetry and ACIST tubing and transducer [email or web address] 02:17 PM Case Delayed No [email or web address] 02:17 PM Hair removed from procedure site in holding area using clippers. Bilateral groin prepped with Chloraprep by Noemí Mcmahon RT (R), safety strap applied then patient was draped. Skin intact. [email or web address] 02:17 PM Physician arrived 14:17 [email or web address] 02:17 PM Meet and greet completed [email or web address] 02:17 PM Sign in performed according to hospital policy. [email or web address] 02:17 PM Procedure start 14:17 [email or web address] 02:17 PM Time: 14:17 Oxygen on at 2 L/min per nasal cannula by Shauna Amaya RN [email or web address] 02:17 PM Time: 14:17 Versed 2 mg Intravenous Given by Shauna Amaya RN [email or web address] 02:17 PM Time: 14:17 Fentanyl 50 mcg Intravenous Given by Shauna Amaya RN [email or web address] 02:17 PM Time: 14:17 Patient comfortable and pain free: Yes [email or web address] 02:17 PM Time: 14:17LOC: 4 = Oriented but drowsy [email or web address] 02:18 PM Irma Gayle RT (R) Position: Scrub Time in: 14:18 [email or web address] 02:18 PM Noemí Mcmahon RT (R) Position: Monitor Time in: 14:18 [email or web address] 02:18 PM Annika Lewis RN Position: Biodiesel Division Manager Time in: 14:18 [email or web address] 02:18 PM Shauna Amaya RN Position: Biodiesel Division Manager Time in: 14:18 [email or web address] 02:20 PM HR=71 bpm, EMHO=466/86 mmhg, SpO2=98.0 %, Resp=22 B/min, Comment=NSR 02:21 PM Pressure channel 3 zeroed. 02:21 PM Recorded ECG: HR=66 Condition=Condition 1 02:25 PM HR=64 bpm, MNDU=707/75 mmhg, SpO2=94.0 %, Resp=22 B/min, Comment=NSR 02:28 PM Time out performed according to hospital policy [email or web address] 02:29 PM Time: 14:29 19 ml Lidocaine 2% to right groin Subcutaneous Given by Gian Scherer MD, FACC [email or web address] 02:30 PM HR=68 bpm, XNGA=935/78 mmhg, SpO2=92.0 %, Resp=21 B/min, Comment=NSR 02:31 PM Access obtained by percutaneous puncture. 5Fr 10cm Terumo [place] sheath placed in right Femoral artery. [id number] [email or web address] 02:31 PM 0.035 145cm Navilyst 3mmJ wire [id number] [email or web address] 02:31 PM 5Fr FL 4 catheter inserted over the wire DNC [email or web address] 02:32 PM LCA angiography performed in multiple views. [email or web address] 02:32 PM Recorded Pressure: Ao, HR=67, Condition=Condition 1 (Aorta) Ao 123/78/98 02:32 PM Time: 14:17 Patient comfortable and pain free: Yes [email or web address] 02:32 PM Time: 14:17LOC: 4 = Oriented but drowsy [email or web address] 02:33 PM Catheter removed [email or web address] 02:34 PM 5Fr FR 4 catheter inserted over the wire DNC [email or web address] 02:34 PM Lesion found in Mid LAD. Pre Stenosis: 50 Pre EDER Flow: [email or web address] 02:35 PM Lesion found in Mid Circumflex. Pre Stenosis: 50 Pre EDER Flow: [email or web address] 02:35 PM Recorded Pressure: Ao, HR=66, Condition=Condition 1 (Aorta) Ao 118/84/100 02:35 PM RCA angiography performed in multiple views. [email or web address] 02:35 PM Coronary Dominance: Co-dominant [email or web address] 02:35 PM HR=66 bpm, ISSC=231/72 mmhg, SpO2=92.0 %, Resp=17 B/min, Comment=NSR 02:35 PM Catheter removed [email or web address] 02:35 PM Lesion found in Mid RCA. Pre Stenosis: 15 Pre EDER Flow: [email or web address] 02:36 PM 5Fr Pigtail catheter inserted over the wire DNC [email or web address] 02:36 PM Pressure channel 3 zero failed. 02:37 PM Recorded Pressure: LV, HR=68, Condition=Condition 1 (Left Ventricle) LV 99/11/15 02:37 PM Catheter selectively placed in left ventricle [email or web address] 02:37 PM Bolus angiogram of left Ventricle complete: 10 ml/sec for a total of 30 mls [email or web address] 02:37 PM Recorded Pressure: LV, Ao, HR=70, Condition=Condition 1 (Left Ventricle) LV 131/16/21, (Aorta) Ao 134/31/78 02:38 PM Catheter removed [email or web address] 02:40 PM Bolus angiogram of right Femoral complete: 4 ml/sec for a total of 7 mls [email or web address] 02:40 PM Procedure completed at 14:40 [email or web address] 02:40 PM HR=71 bpm, QOGN=169/76 mmhg, SpO2=94.0 %, Resp=17 B/min, Comment=NSR 02:40 PM Sign out completed: Radiation Dose 93.08 mGy Fluoro Time: 0.8 Isovue 370 - 200ml contrast 49 ml given by Gian Scherer MD, FACC. Complications: NoneCardiac Rehab Consult needed: NoConfirmed administered medications: Yes [email or web address] 02:40 PM Isovue 370 - 200ml,1 Bottle(s) used. [email or web address] 02:41 PM Arterial sheath pulled using manual compression and V+ Pad for 15 minutes by Irma Gayle RT (R) [email or web address] 02:41 PM Post ECG NSR [email or web address] 02:41 PM Post Blood Pressure 127/76 [email or web address] 02:41 PM Information taught Cardiac Cath [email or web address] 02:41 PM Learning barriers :None [email or web address] 02:41 PM Education Methods Verbal [email or web address] 02:42 PM Education evaluation Able to repeat information [email or web address] 02:42 PM Delay to floor No [email or web address] 02:42 PM Complications: None [email or web address] 02:42 PM Isovue 370 - 200ml contrast 49 ml given by Gian Scherer MD, FACC. [email or web address] 02:42 PM Radiation Dose 93.08 mGy [email or web address] 02:44 PM Family placed in consult room. [email or web address] 02:45 PM HR=66 bpm, CVQD=616/69 mmhg, SpO2=95.0 %, Resp=18 B/min, Comment=NSR 02:46 PM Report given to Sara PLEITEZ Pt taken to 2A Room #23. 14:46 [email or web address] 02:47 PM Time: 14:32 Patient comfortable and pain free: Yes [email or web address] 02:48 PM Time: 14:32LOC: 4 = Oriented but drowsy [email or web address] 02:50 PM HR=65 bpm, QCEP=231/68 mmhg, SpO2=94.0 %, Resp=17 B/min, Comment=NSR 02:55 PM HR=65 bpm, KBCL=959/75 mmhg, SpO2=94.0 %, Resp=16 B/min, Comment=NSR 03:05 PM Time: 14:48LOC: 4 = Oriented but drowsy [email or web address] 03:05 PM Time: 14:47 Patient comfortable and pain free: Yes [email or web address] 03:05 PM Site status No bleeding/hematoma - Rt Groin as reported by Shauna Amaya RN at 15:05 [email or web address] 03:05 PM Opsite applied [email or web address] 03:05 PM Patient out of room: 15:05 [email or web address] Complications Complication None None Hemodynamics Pressures Site Systolic/A Wave Diastolic/V Wave Mean AO 123 78 98 AO 118 84 100 LV 99 11 15 LV 131 16 21 AO 134 31 78 Post Procedure Information Blood Pressure: 127/76 mmHg Rhythm: NSR Post procedural instructions were given Site Checks Time Location Status Staff Sheath In? Note 03:05 PM Rt Groin No bleeding/hematoma Shauna Amaya RN Pulses Time Site Pre-Procedure Post-Procedure Note 01/30/2017 2:00:00 PM Bilateral DP & PT 1+ 1+ 01/30/2017 2:00:00 PM Bilateral radial 2+ 2+ Updated by Radha Chase RN on 01/30/2017 4:00:50 PM electronically signed on 01/30/2017 4:01:22 PM with status of Final
[2017-01-30] MEDS: Heparin 25,000 UNIT/500 ML D5W 25,000 UNIT/500 ML MLS IVC SCH (17:46)
[2017-01-31 05:41] LABS: Hematocrit 35.5 % (35.3-44.9); Hemoglobin 11.1 g/dL (11.5-15.4); Mean Corpuscular HGB Conc 31.3 g/dL (31.6-35.5); Mean Corpuscular Hemoglobin 29.4 pg (28.0-33.3); Mean Corpuscular Volume 94.2 fL (83.0-100.0); Mean Platelet Volume 10.8 fL (9.4-12.4); Platelet Count 211 K/mcL (140-400); Red Blood Count 3.77 M/mcL (3.82-4.97); Red Cell Distribution Width 12.3 % (11.5-14.5)
--- NOTE | 2017-01-31 05:51 | Electrocardiograph Report ---
[place] [id number] Test Date: 2017-01-29 Pat Name: Zonia White Department: 105 Room: 2A25 Gender: F Razor Sharpener: [facility] : 1950 Requested By: Ajit Mathur Order Number: [id number] Reading MD: Gian Scherer MD Measurements Intervals [place] Rate: 82 P: 75 [place]: 216 QRS: -19 QRSD: 76 T: 69 QT: 368 QTc: 407 Interpretive Statements SINUS RHYTHM WITH FIRST DEGREE AV BLOCK ANTERIOR MYOCARDIAL INFARCTION, OF INDETERMINATE AGE BASELINE ARTIFACT Electronically Signed On 01-31-2017 5:50:13 EDT by Gian Scherer MD
[2017-01-31 05:53] LABS: BUN/Creatinine Ratio 12 (6-26); Blood Urea Nitrogen 12 mg/dL (7-20); Calcium 6.5 mg/dL (8.6-10.8); Carbon Dioxide 23 mEq/L (19-29); Chloride 113 mEq/L (98-109); Glucose 98 mg/dL (70-99); Osmolality,Calculated 296 (280-300); Potassium 4.2 mEq/L (3.5-4.5); Sodium 143 mEq/L (136-145); eGFR For African Americans > 60 (> 60); eGFR For Non-African Americans 55 (> 60)
[2017-01-31 07:27] VITALS: BP 147/87
[2017-01-31] MEDS ORDERED: Calcium Gluconate 2,000 MG in D5% in Water 100 ML IVPB ONE (09:04)
[2017-01-31] MEDS ORDERED: Magnesium Sulfate 2 GM in D5% in Water 100 ML IVPB ONE (09:04)
[2017-01-31] MEDS: Multivit/Ca/Min/Fe/FA 1 TAB TABLET PO SCH (09:20)
[2017-01-31] MEDS: Aspirin 81 MG TAB.CHEW PO SCH (09:21)
[2017-01-31] MEDS: Cholecalciferol (D-3) 1,000 UNIT TABLET PO SCH (09:21)
[2017-01-31] MEDS: Magnesium Oxide 400 MG TABLET PO SCH (09:21)
--- NOTE | 2017-01-31 09:44 | Discharge Summary ---
<Victorino Goode - Last Filed: 01/31/17 09:41> Date of Encounter: 01/31/17 Time of Encounter: 09:41 - Discharge Diagnosis (1) Chest pain Priority: Primary Status: Resolved Qualifiers: Chest pain type: chest pain due to myocardial ischemia Ischemic chest pain type: unstable angina pectoris Qualified Code(s): I20.0 - Unstable angina (2) Hypocalcemia Priority: Secondary Status: Chronic (3) Hypomagnesemia Priority: Secondary Status: Chronic (4) Hypokalemia Priority: Secondary Status: Chronic (5) CAD (coronary artery disease) Priority: Secondary Status: Chronic Qualifiers: Coronary Disease-Associated Artery/Lesion type: [place] artery [place] vs. transplanted heart: [place] heart Associated angina: with unstable angina Qualified Code(s): I25.110 - Atherosclerotic heart disease of [place] coronary artery with unstable angina pectoris (6) HLD (hyperlipidemia) Priority: Secondary Status: Chronic Qualifiers: Hyperlipidemia type: pure hypercholesterolemia Qualified Code(s): E78.00 - Pure hypercholesterolemia, unspecified; E78.0 - Pure hypercholesterolemia (7) HTN (hypertension) Priority: Secondary Status: Chronic Qualifiers: Hypertension type: essential hypertension Qualified Code(s): I10 - Essential (primary) hypertension - Discharge Medications Home Medications: Aspirin 81 mg PO DAILY #30 tab.chew 09/02/15 [Rx] Atorvastatin [Lipitor] 80 mg PO HS #30 tablet 09/02/15 [Rx] Lisinopril [Zestril] 2.5 mg PO DAILY #30 tablet 09/02/15 [Rx] Nitroglycerin 0.4 mg SL Q5MIN PRN #30 tab.subl 09/02/15 [Rx] Cholecalciferol (D-3) [Vitamin D] 2,000 unit PO BID #0 10/09/15 [History] Fish Oil/Dha/Epa [Fish Oil 1,200 mg Fish Oil] 1 cap PO DAILY #0 10/09/15 [ History] Magnesium 200 mg PO DAILY #0 10/09/15 [History] Carvedilol [Coreg] 6.25 mg PO BID 01/29/17 [History] Clopidogrel [Plavix] 75 mg PO DAILY 01/29/17 [History] Levothyroxine [Synthroid] 150 mcg PO DAILY 01/29/17 [History] [id number]/Iron Fumarate/FA/Dss [ 19 Tablet] 1 tab PO DAILY 01/29/17 [ History] Allergies/Adverse Reactions: 3 Allergy/AdvReac Type Severity Reaction Status Date / Time Sulfa (Sulfonamide Allergy See Verified 01/29/17 12:00 Antibiotics) Comments Date of admission: 01/30/17 18:29 Primary care physician: Louisa Joseph Discharging clinician: Victorino Goode Anticipated date of discharge: 01/31/17 - Patient Status Disposition: Home, Self-Care Condition: Good Functional capacity at discharge: independent ambulation Overall status at discharge: patient is progressing back to baseline - Discharge Instructions Instructions: Chest Pain (DC) Follow Up With: Louisa Joseph MD [Primary Care Provider] - 02/06/17 1:00 pm (please follow up as schedule...) Additional Instructions: Please follow-up with your primary care physician. Please resume home medications. Please return for any new or worsening symptoms. - Diet and Activity Activity: increase activity as tolerated Diet: low fat, low cholesterol, low salt diet Interval History: Patient seen and examined at bedside. Patient time. She is chest pain-free and has been since yesterday. She denies shortness of breath, abdominal pain, nausea, vomiting, muscle aches, muscle twitching, weakness. Hospital course: Ms. White is a 66 year old female with history of coronary artery disease, gastric bypass presents with chest pain. Patient had chest pain at rest and this was felt related to unstable angina. Patient underwent left heart catheterization which showed mild coronary disease but no lesion amenable to PCI. Patient remained chest pain-free throughout her hospital stay. Of note she was found to have several electrolyte disturbances including hypokalemia, hypocalcemia, hypomagnesemia. In discussion with this patient she states that these are chronic for her she has had these issues since her bypass surgery in the 70s. Patient was offered outpatient follow-up with nephrology however she would like to just follow up with her PCP and continue outpatient management and allow her PCP to decide if she needs to see a specialist. Electrolytes were repleted during her hospital stay and improved. Patient was asymptomatic from this. Patient will be discharged home in stable condition. - Time Spent with Patient Total time spent providing and/or coordinating discharge services: - Constitutional Vitals: Temp Pulse Resp BP Pulse Ox 98 F 72 18 147/87 96 01/31/17 07:21 01/31/17 07:21 01/31/17 07:21 01/31/17 07:01/31/17 07:21 General appearance: Present: cooperative, A&O X 3, pleasant, no acute distress, obese, answers questions appropriately - Respiratory Respiratory exam: Present: CTAB. Absent: rales, rhonchi, wheezes - Cardiovascular Cardiovascular exam: Present: RRR. Absent: gallop, rubs, systolic murmur - GI/Abdominal GI/Abdominal exam: Present: normal bowel sounds, soft. Absent: distended, tenderness - Extremities Exam Extremities exam: Present: warm. Absent: pedal edema, tenderness - Neurological Exam Neurological exam: Present: alert, CN II-XII intact, oriented X3, no focal deficits <Colby Day - Last Filed: 01/31/17 18:32> Date of Encounter: 01/31/17 Date of admission: 01/30/17 18:29 [facility] course: Ms. White is a 66 year old female - Time Spent with Patient Total time spent providing and/or coordinating discharge services: - Constitutional Vitals: Temp Pulse Resp BP Pulse Ox 98 F 72 18 147/87 96 01/31/17 07:21 01/31/17 07:21 01/31/17 07:01/31/17 07:01/31/17 07:21 - Attending Attestation I examined this patient and my medical decision-making was reviewed with the Resident Physician. I agree with the documented findings, disposition and treatment plan as described except to the extent set forth below.
--- NOTE | 2017-01-31 10:35 | Event Note ---
Date of Encounter: 01/31/17 Time of Encounter: 09:00 - Cardiology Event Note Discussed [facility] with Dr. Scherer--patent pLAD stent with non-obstructive CAD. Has been chest pain free since admission. Consider GI etiology. No further recommendations from Cardiology standpoint. Electrolytes improved this AM; discussed with primary service, recommend outpatient follow-up with Nephrology. Continue current CV medications including asa, statin, betablocker, and plavix. Follow-up with Cardiology as scheduled.
== END 2017-01-31 13:26 | disposition home or self-care (01) | DRG 287 ==
LOC: 2ANU 11:53 → EMEROO 11:53 → 2ANU 16:32
PROVIDERS: ADMIT Internal Medicine; ATTEND Internal Medicine